=== PATIENT | female | born 1985 | race Two or more races ===

== ENCOUNTER 2024-07-27 21:33 | Emergency (ER) | payer MEDICAID, OTHER ==
[~2024-07-27] VITALS: Ht 167.6 cm; Wt 103.0 kg
[2024-07-27 21:56] VITALS: BP 146/88; PULSE 86; RESP 16; O2SAT 96
[2024-07-28] MEDS ORDERED: IBUP200T76 PO (03:11)
[2024-07-28] MEDS ORDERED: HYDR-4902 PO (03:11)
== END 2024-07-28 08:18 | disposition left against medical advice (07) ==
LOC: ER 21:33
DX: S52.301A Unspecified fracture of shaft of right radius, initial encounter for closed fracture (principal); F17.210 Nicotine dependence, cigarettes, uncomplicated; Z88.0 Allergy status to penicillin; Z88.1 Allergy status to other antibiotic agents; Z88.6 Allergy status to analgesic agent; W18.09XA Striking against other object with subsequent fall, initial encounter; Y93.89 Activity, other specified; Y92.89 Other specified places as the place of occurrence of the external cause; Y99.8 Other external cause status
CPT/HCPCS: 73100

== ENCOUNTER 2024-12-30 22:31 | Emergency (ER) | payer MEDICAID ==
[~2024-12-30] VITALS: Ht 165.1 cm; Wt 96.8 kg
[~2024-12-30 22:31] MED LIST: HYDR-4902 PO; IBUP200T76 PO
--- NOTE | 2024-12-31 01:11 | ED.PDOC ---
Back pain HPI HPI Comments Pt C/O "burning sensation to both arms" x 3 days, Pt report her arms "are both constantly on fire, but when she moves certain ways the burning turns into severe pain for 15 minutes and it takes her breathe away". DENIES NECK PAIN, OR NUMBNESS, WEAKNESS OR KNOWN INJURY Chief Complaint: Upper Extremity Time Seen by MD: 22:55 Reviewed Notes: Nurses Notes, Medications, Allergies Allergies: Coded Allergies: Amoxicillin (Verified Allergy, Unknown, 07/27/24) Cephalexin (Verified Allergy, Unknown, 07/27/24) Penicillins (Verified Allergy, Unknown, 07/27/24) Home Meds Active Scripts Hydrocodone-Acetaminophen (Hydrocodone Bitartrate/AC 5-325 mg) 1 Tab Tab, 1 TAB PO QIDPRN, #20 TAB Prov:BRIAN SALGADO MD 07/28/24 Ibuprofen (Advil) 200 Mg Tab, 800 MG PO TID, #30 TAB Prov:RBIAN SALGADO MD 07/28/24 Mode of Arrival: Ambulatory Past Medical History PAST MEDICAL HISTORY: Denies Surgical History: Denies all surgeries ORDNANCE KEEPER History: Denies all ORDNANCE KEEPER Hx Family History Family History: Unknown Social History Smoker: Cigarettes Alcohol: Denies ETOH Use Drugs: Denies Drug Use Lives In: Home Constitutional: denies: chills, diaphoresis, fatigue, fever, malaise, sweats, weakness, others EENTM: denies: blurred vision, double vision, ear bleeding, ear discharge, ear drainage, ear pain, ear ringing, eye pain, eye redness, hearing loss, mouth pain, mouth swelling, nasal discharge, nose bleeding, nose congestion, nose pain, photophobia, tearing, throat pain, throat swelling, voice changes, others Respiratory: denies: cough, hemoptysis, orthopnea, SOB at rest, shortness of breath, SOB with excertion, stridor, wheezing, others Cardiovascular: denies: chest pain, dizzy spells, diaphoresis, Dyspnea on exertion, edema, irregular heart beat, left arm pain, lightheadedness, palpitati ons, PND, syncope, others Gastrointestinal: denies: abdomen distended, abdominal pain, blood streaked bowels, constipated, diarrhea, dysphagia, difficulty swallowing, hematemesis, melena, nausea, poor appetite, poor fluid intake, rectal bleeding, rectal pain, vomiting, others Genitourinary: denies: abnormal vagina bleeding, burning, dyspareunia, dysuria, flank pain, frequency, hematuria, incontinence, pain, , vagina discharge, urgency, others Neurological: denies: dizziness, fainting, headache, left sided numbness, left sided weakness, numbness, paresthesia, pre-existing deficit, right sided numbness, right sided weakness, seizure, speech problems, tingling, tremors, weakness, others Musculoskeletal: reports: others (BILATERAL ARM PAIN); denies: back pain, gout, joint pain, joint swelling, muscle pain, muscle stiffness, neck pain Integumetry: denies: bruises, change in color, change in hair/nails, dryness, laceration, lesions, lumps, rash, wounds, others Allergic/Immunocompromised: denies: Difficulty Healing, Frequent Infections, Hives, Itching, others Hematologic/Lymphatic: denies: anemia, blood clots, easy bleeding, easy bruising, swollen glands, others Endocrine: denies: excessive hunger, excessive sweating, excessive thirst, excessive urination, flushing, intolerance to cold, intolerance to heat, unexplained weight gain, unexplained weight loss, others Psychiatric: denies: anxiety, bipolar disorder, depression, hopeless, panic disorder, schizophrenia, sleepless, suicidal, others Physical Exam General Appearance: No Apparent Distress, Normal HEENT: Normal ENT Inspection, Pharynx Normal, TMs Normal Neck: Full Range of Motion, Supple, Other (TENDERNESS ON PALPATION OVER C4 THROUGH C7 CERVICAL SPINE WITHOUT CREPITUS OR STEP-OFFS. MODERATE TENDERNESS OVER C4 THROUGH T3 BILATERAL PARASPINAL MUSCLES. SENSORY MOTION INTACT BILATERAL UPPER EXTREMITIES POSITIVE RADIAL PULSES) Respiratory: Lungs Clear, No Respiratory Distress, Normal Breath Sounds Cardiovascular: No Edema, No JVD, No Murmur, No Gallop, Normal Peripheral Pulses, Regular Rate/Rhythm Breast Exam: Deferred Gastrointestinal: No Organomegaly, Non Tender, No Pulsatile Mass, Normal Bowel Sounds, Soft Genitalia: Deferred Pelvic: Deferred Rectal: Deferred Extremities: Normal capillary refill, Normal inspection, Normal range of motion, Non-tender, No pedal edema Musculoskeletal : Apperance: Normal Neurologic: Alert, household appliance installer II-XII nml as Tested, No Motor Deficits, Normal Affect, Normal Mood, No Sensory Deficits Cerebellar Function: Normal Reflexes: Normal Skin: Dry, Normal Color, Warm Lymphatic: No Adenopathy Was a procedure done? Was a procedure done?: No Back Pain Differential Dx Differential Diagnosis: Fracture, Strain Other Differential Diagnosis CERVICAL RADICULOPATHY. SHINGLES. NEUROPATHY X-Ray, Labs, Meds, VS Vital Signs Date Time Temp Pulse Resp B/P (MAP) Pulse Ox O2 Delivery O2 Flow Rate FiO2 12/31/24 01:32 92 19 97 Room Air 12/31/24 01:32 98.1 92 19 152/97 (115) 97 98.1 12/30/24 22:57 98.1 15 20 131/84 (100) 96 Current Medications Medications (Trade) Dose Ordered Sig/Darline Route Start Time Stop Time Status Last Admin Ketorolac Tromethamine (Toradol Injection) 60 mg ONCE ONCE IM 12/31/24 02:15 12/31/24 02:16 DC 12/31/24 02:26 Dexamethasone Sodium Phosphate (Decadron Injection) 10 mg ONCE ONCE IM 12/31/24 02:15 12/31/24 02:16 DC 12/31/24 02:26 Acetaminophen/ Hydrocodone Bitart ([place] 5/325MG Tab) 2 tab ONCE ONCE PO 12/31/24 02:15 12/31/24 02:16 DC 12/31/24 02:25 X-Ray, Labs, Meds, VS Comment CT cervical spine impression: 1. Multilevel degenerative changes of the spine, most pronounced at C5-C6 2. No definite CT evidence of acute fracture or dislocation of the bony cervical spine. Patient given Toradol 60 mg IM, Decadron 10 mg IM, and [place] 10 mg p.o. reports improvement in pain and function states pain is better now prior to walking in rates it 2/10 on pain scale. Requesting discharge at this time. Script muscle relaxer, and Medrol Dosepak. Advised to take medications as prescribed side effects discussed. PCP in 1-2 days, consider MRI for continued symptoms. ER return precautions patient indicated understanding and agrees with discharge plan of care. ; Time of 1ST Reevaluation: 02:53 Reevaluation 1ST: Improved Patient Education/Counseling: Diagnosis, Treatment, Prognosis, Need For Follow Up Family Education/Counseling: No Family Present Departure 1 Departure Time of Disposition: 02:53 Impression: Primary Impression: Acute cervical myofascial strain Qualified Codes: S16.1XXA - Strain of muscle, fascia and tendon at neck level, initial encounter Disposition: HOME / SELF CARE / HOMELESS Condition: Stable e-Prescriptions Methylprednisolone (Medrol Dosepak) 4 Mg Rayo 4 MG PO UD for 6 Days, #21 TAB UAD Prov: CHANTAL ORDAZ 12/31/24 Tizanidine Hydrochloride (Tizanidine Hcl) 4 Mg Tab 4 MG PO BID PRN for 5 Days, #10 TAB Prov: CHANTAL ORDAZ 12/31/24 Discharged With: Self Critical Care Note Critical Care Time?: No Stability Stability form required: No CHANTAL ORDAZ Dec 31, 2024 01:11
[2024-12-31 01:32] VITALS: BP 152/97; PULSE 92; RESP 19; TEMP 98.1; O2SAT 97
[2024-12-31] MEDS: HYDROcodone-ACET 5/325MG TAB PO ONE (02:25)
[2024-12-31] MEDS: DexAMETHasone SOD PHOS 10MG/1ML VIAL INJ IM ONE (02:26)
[2024-12-31] MEDS: KETOROLAC TROMETH 60MG/2ML VIAL IM ONE (02:26)
--- NOTE | 2024-12-31 02:42 | DVH ---
EXAM: CT CERVICAL WITHOUT CONTRAST HISTORY: NECK PAIN WITH ARM NUMBNESS/BURNING COMPARISON: None CTDIvol 23.6 mGy, DLP 612 FLOW mGy*cm. TECHNIQUE: Multiple axial CT images of the spine were obtained using bone algorithm. Axial and coron al reformatting was done. Bone and soft tissue windows were reviewed. FINDINGS: No CT evidence of definite acute fracture, spinal dislocation, or significant appearing acute subluxa tion is seen. Straightening of the cervical spine lordosis, probably due to degenerative change. The visualized paraspinal soft tissues are grossly unremarkable. Multilevel degenerative changes of the spine, most pronounced at C5-6. IMPRESSION: 1. No definite CT evidence of acute fracture or dislocation of the bony cervical spine.
[2024-12-31] MEDS ORDERED: METH4PAK PO (02:53)
[2024-12-31] MEDS ORDERED: TIZA-142 PO (02:53)
== END 2024-12-31 03:11 | disposition home or self-care (01) ==
LOC: ER 22:31
DX: S16.1XXA Strain of muscle, fascia and tendon at neck level, initial encounter (principal); F17.210 Nicotine dependence, cigarettes, uncomplicated; Z88.1 Allergy status to other antibiotic agents; Z88.0 Allergy status to penicillin; Z79.1 Long term (current) use of non-steroidal anti-inflammatories (NSAID); X58.XXXA Exposure to other specified factors, initial encounter; Y93.89 Activity, other specified; Y92.89 Other specified places as the place of occurrence of the external cause; Y99.8 Other external cause status
CPT/HCPCS: 72125; 96372; 99285; J1100; J1885